=== PATIENT | female | born 1995 | race Caucasian/White ===

== ENCOUNTER 2016-06-04 16:58 | Emergency (ER) | payer BC, MEDICAID, OTHER ==
--- OUTSIDE RECORDS SUMMARY | 2016-06-04 17:26 | XMS REPORT | Continuity of Care Document ---
:1995 Author Organization [facility] ([facility]) Address [place] [address] Phone [phone] Care Team Providers Name Role Phone Provider, No-Primary Care Primary Care Provider Unavailable Source Comments This disclosure is being made pursuant to the Care Everywhere program, applicable federal and state laws, and may not contain all informaitonavailable regarding this patient.[facility] ([facility]) Active Allergies and Adverse Reactions Allergen Noted Date Severity Reactions Comments Metoclopramide Hcl 12/11/2013 Agitation Promethazine 11/21/2013 Hallucinations,Mental status changes Current Medications Prescription Sig. Disp. Refills Start Date End Date Status multivitamin Take 1 Tab by mouth Active with minerals 27-0.8 daily. mg tablet oxyCODONE-acetaminophe Take 1-2 Tabs by 25 Tab 0 12/11/2013 Active n 5-325 mg per tablet mouth every 4 hours as needed. Do Not exceed 4000 mg of acetaminophen per 24 hours. Indications: PAIN metroNIDAZOLE 500 mg Take 1 Tab by mouth 2 14 Tab 0 12/11/2013 Active tablet times daily. Indications: BACTERIAL VAGINOSIS fluconazole 150 mg Take 1 Tab by mouth 3 Tab 0 12/11/2013 Active tablet once. 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 Pain in joint, shoulder region 11/16/2007 Social History Tobacco Use Types Packs/Day Years Used Date Never Smoker Smokeless Tobacco: Never Used Alcohol Use Drinks/Week oz/Week Comments No Last Filed Vital Signs Vital Sign Reading Time Taken Blood Pressure 128/71 12/11/2013 9:30 PM CDT Pulse 79 12/11/2013 6:45 PM CDT Temperature 37.2 C (99 F) 12/11/2013 9:55 PM CDT Respiratory Rate 18 12/11/2013 6:45 PM CDT Height 1.549 m (5' 1") 12/11/2013 6:45 PM CDT Weight 76.204 kg (168 lb) 12/11/2013 6:45 PM CDT Body Mass Index 31.76 12/11/2013 6:45 PM CDT Oxygen Saturation - - Plan of Care Health Maintenance Due Date Last Done Comments Hepatitis B Vaccine (1 of 3 - Primary Series) 1994 HPV Vaccine (1 of 3 - Female/Unknown 3 Dose Series) 2005 Tdap Vaccine 2005 Meningococcal Vaccine (1 of 1) 2010 Cervical Cancer Screening 2012 Lipid Disorder Screening 2012 MMR Vaccine 2012 Td Vaccine 2012 Varicella Vaccine (1 of 2 - Adult - No Evidence of 2012 Immunity) Influenza Vaccine: Seasonal (#1) 09/29/2015 Results from Last 3 Months Not on file
--- OUTSIDE RECORDS SUMMARY | 2016-06-04 17:26 | XMS REPORT | Continuity of Care Document ---
:1995 Author Organization [facility] [place] [address] Care Team Providers Name Role Phone Unavailable Primary Care Provider Unavailable Source Comments This disclosure is being made pursuant to the Aqwise program and maynot contain all information available regarding this patient.[facility] Active Allergies and Adverse Reactions Not on File Current Medications Be aware that medications may not be up to date as of this document. Alwaysverify current medications with the patient. Not on file Active Problems Not on file Social History Tobacco Use Types Packs/Day Years Used Date Never Assessed Plan of Care Health Maintenance Due Date Last Done Comments HPV Vaccine (9-26YO) (1 of 3 - Female/Unknown 3 Dose 2005 Series) Chlamydia Screening 2010 Retired-Tetanus Vaccine Adult 2013 Retired-INFLUENZA VACCINE 10/29/2014 Results from Last 3 Months Not on file
--- NOTE | 2016-06-04 19:09 | ERNOTE ---
Medical Problem HPI - Narrative Date of Service: 06/04/16 - General Chief Complaint: General Assessment Time Seen by Provider: 06/04/16 17:14 Source: patient Exam Limitations: no limitations - Immun/Allergies/Home Medications Immunizations: IMMUNIZATION HX Immunizations Up to Date Yes History of Influenza Vaccine Yes Hx Pneumococcal Vaccination No Allergies/Adverse Reactions: Allergies promethazine HCl [From Phenergan] Adverse Reaction (Intermediate, Verified 06/04 17:06) Other hallucinations Home Medications: HOME MEDICATIONS Vit#96/Ferrous Fum/FA [ S] 1 tab PO DAILY 04/29/13 [Last Taken 12/24/13 08:00] oxyCODONE HCL/ACETAMINOPHEN [Percocet 5 MG/325 MG] 1 tab PO QID PRN #30 tablet 12/26/13 [Last Taken Unknown] - History of Present History Narrative: This 20-year-old female presented to the emergency room for abdominal pain cramping and bleeding. She states that she is at this time. Her last menstrual period she said sometime in March. Patient states that she started spotting 3 days ago this morning she had heavy bleeding with clots. She did not call her PRODUCTION ENGINEER. Date (Duration): 06/04/16 Timing: constant Severity: mild Review of Systems - Review of Systems Constitutional: Present: no symptoms reported EYE: Present: no symptoms reported ENT: Present: no symptoms reported Respiratory: Present: no symptoms reported Cardiology: Present: no symptoms reported Gastrointestinal/Abdominal: Present: abdominal pain - cramping. Absent: nausea , vomiting, diarrhea Genitourinary: Present: See HPI Musculoskeletal: Present: no symptoms reported Skin: Present: no symptoms reported Neurological: Present: no symptoms reported Endocrine: Present: no symptoms reported Hematologic/Lymphatic: Present: no symptoms reported Psych: Present: no symptoms reported - Patient's Past Medical History Patient History - Medical: No pertinent hx, Other Additional info: She has 3 children and has also had 2 miscarriages in the past Patient History - Cardiac/Respiratory: No pertinent hx Patient History - Cancer: No Hx of Cancer Patient History - Surgical Procedures: T & A Patient History - Other: None LMP (females 10-50): - Social History Living Situations: home Abuse History: No History of abuse Psych History: No pertinent hx Smoking Status: Former smoker Have you smoked in the past 12 months: No Do you dip or chew tobacco: No Alcohol Use: none Drug Use: none - Immunizations Immunizations Up to Date: Yes Hx Pneumococcal Vaccination: No History of Influenza Vaccine: Yes Physical Exam - Physical Exam Narrative: Patient's abdomen is soft and nontender. She did state that her cramping has gotten better since this morning. Patient states that she had read bloody discharge with clots this morning that was very heavy but it has gotten better as the day went on. General Appearance: Present: wd/wn, alert, no apparent distress Eye Exam: Normal inspection: bilateral Ears, Nose, Throat: Present: normal ENT inspection Neck: Present: normal inspection Respiratory: Present: no respiratory distress Cardiovascular/Chest: Present: regular rate, rhythm Gastrointestinal/Abdominal: Present: normal bowel sounds Extremity Exam: Present: normal inspection Neurological Exam: Present: alert, oriented, normal mood/affect Skin Exam: Present: normal color Lymphatic Exam: Present: no adenopathy Pelvic Exam: Present: active bleeding - per pt, discharge ED Progress - Results and Orders Patient's Lab Results:: I have reviewed the patient's lab results. Results and Orders: neg - Vital Signs Patient's Vital Signs:: I have reviewed the patient's vital signs. Vital Signs: Vital Signs 06/04/16 17:07 Temperature 36.7 C Pulse Rate 75 Respiratory 14 Rate Blood Pressure 111/81 O2 Sat by Pulse 99 Oximetry - CT/Ultrasound CT/Ultrasound Narrative: The uterus measures approximately 8.8 cm in length by 3.9 cm AP by 5.1 cm transverse. There is a normal uterine contour and echotexture without evidence of mass. There is limited evaluation of the endometrium. The lower uterine segment and cervix are grossly unremarkable, however, are poorly visualized. The right ovary measures approximately 3.0 x 3.9 x 3.2 cm. The left ovary measures approximately 2.7 x 2.8 x 1.2. There is symmetric color flow and pulsatile flow to the ovaries. There is a possible dominant right ovarian follicle measuring approximately 1.9 cm. There is no obvious adnexal mass. Limited evaluation the urinary bladder is unremarkable. Transvaginal pelvic ultrasound: The uterus measures approximately 9.6 cm in length by 3.5 cm AP by 4.3 cm transverse. There is a normal uterine contour and echotexture without evidence of mass. Possible septate or arcuate appearance versus artifact. The endometrium is normal in appearance measuring 0.7 cm in thickness. No evidence of a gestational sac, yolk sac, or pole within the endometrium. The lower uterine segment is unremarkable. The cervix is unremarkable. The right ovary measures approximately 2.5 x 3.5 x 2.9 cm. The left ovary measures approximately 3.4 x 1.8 x 1.3 cm. There is symmetric color flow and pulsatile flow to the ovaries. There is a dominant right ovarian follicle measuring approximately 2 cm. There is no discrete adnexal mass. There is a small amount of pelvic free fluid. Impression: No evidence of a intrauterine . Recommend correlation with serial beta-hCGs. If the patient has a previously documented positive test with a interval downward trend of the beta hCG, failure of first term could be considered. If the patient has a previously documented positive test with upward trend of the beta hCG, a early intrauterine or ectopic could be considered. Possible septate or arcuate uterus versus artifact. Additional findings and comments are as above. Electronically signed by Tim Alexis D.O.. - Progress/Reassessment Chief Complaint: General Assessment Progress:: Improved Plan - Plan Plan: Patient does not want her boyfriend be aware of her reasoning for being at the hospital. This provider asked the patient if she is safe at home and in a safe relationship with her children she shook her head yes. She then began avoiding eye contact with me for the rest of the conversation and interview. She was asked again about the safety of her home environment. She shook her head yes. Patient requested that no one be given information about her condition while she is here. She states that she will tell her boyfriend when she gets home. Departure - Departure Clinical Impression: Menstrual abnormality Disposition: Home Follow Up Needed Condition: Stable Instructions: Abnormal Uterine Bleeding, Dysmenorrhea, [id number], Menorrhagia, [id number] Additional Instructions: Patient is to follow-up with her PRODUCTION ENGINEER on Tuesday relating to this incident. Please return to the emergency room if bleeding is unable to be controlled or you have any new symptoms. you may take any home medications as previously prescribed. Take [id number] pain medication for cramping. Referrals: Cole Jaime DO [Primary Care Provider] -
[2016-06-04 19:52] VITALS: BP 110/71
== END 2016-06-04 19:34 | disposition home or self-care (01) ==
LOC: ER 16:58
DX: N92.6 Irregular menstruation, unspecified (principal); Z87.891 Personal history of nicotine dependence

== ENCOUNTER 2016-12-15 08:53 | Emergency (ER) | payer MEDICAID, OTHER ==
[2016-12-15 09:14] VITALS: BP 119/73
--- NOTE | 2016-12-15 09:36 | ERNOTE ---
Abdominal HPI - Narrative Date of Service: 12/15/16 - General Chief Complaint: Abdominal Pain Time Seen by Provider: 12/15/16 09:21 Source: patient Exam Limitations: no limitations - Immun/Allergies/Home Medications Immunizatons: IMMUNIZATION HX Immunizations Up to Date Yes History of Influenza Vaccine No Hx Pneumococcal Vaccination No Allergies/Adverse Reactions: Allergies metoclopramide [From Reglan] Adverse Reaction (Intermediate, Verified 12/15/16 09:15) Other promethazine HCl [From Phenergan] Adverse Reaction (Intermediate, Verified 12/15 09:15) Other hallucinations Home Medications: HOME MEDICATIONS Vits96/Iron Fum/Folic [ S] 1 tab PO DAILY 04/29/13 [Last Taken 12/24/13 08:00] HYDROcodone/ACETAMINOPHEN [[place] 5-325] 1 - 2 tab PO TID PRN #12 tab 12/15/16 [ Last Taken Unknown] - History of Present Illness Narrative: Patient is 8 weeks and presents to the emergency room for large amount of vaginal bleeding and cramping since this morning since she woke up. She denies any trauma she has not been sexually active in the past 24 hours and she did not lift anything heavy. She was fine last night started having pelvic pain and cramping this morning with a large amount of blood and clots. Denies feeling dizzy or lightheaded. Review of Systems - Review of Systems Constitutional: Present: no symptoms reported, decreased activity level ENT: Present: no symptoms reported Respiratory: Present: no symptoms reported Cardiology: Present: no symptoms reported Gastrointestinal/Abdominal: Present: no symptoms reported Genitourinary: Present: See HPI Musculoskeletal: Present: no symptoms reported Skin: Present: no symptoms reported - Patient's Past Medical History Patient History - Medical: No pertinent hx, Other Patient History - Cardiac/Respiratory: No pertinent hx Patient History - Cancer: No Hx of Cancer Patient History - Surgical Procedures: T & A Patient History - Other: None LMP (females 10-50): 3 months LMP (Calendar): 10/22/16 - Social History Abuse History: No History of abuse Psych History: No pertinent hx Smoking Status: Current every day smoker Have you smoked in the past 12 months: Yes - Immunizations Immunizations Up to Date: Yes Hx Pneumococcal Vaccination: No History of Influenza Vaccine: No Physical Exam - Physical Exam General Appearance: Present: wd/wn, alert, no apparent distress Head Exam: Present: normal inspection Respiratory: Present: no respiratory distress, normal breath sounds, no accessory muscle use, chest nontender, lungs clear Cardiovascular/Chest: Present: regular rate, rhythm, no murmur, normal peripheral pulses Gastrointestinal/Abdominal: Present: normal bowel sounds, nontender, nondistended, soft, no organomegaly Extremity Exam: Present: other - there is blood and clots at the enteritis. I do not see any tissue in the vaginal vault or at the introitus. ED Progress - Results and Orders Patient's Lab Results:: I have reviewed the patient's lab results. - Vital Signs Patient's Vital Signs:: I have reviewed the patient's vital signs. Vital Signs: Vital Signs 12/15/16 09:10 Temperature 36.9 C Pulse Rate 95 Respiratory 16 Rate Blood Pressure 119/73 O2 Sat by Pulse 100 Oximetry - Progress/Reassessment Chief Complaint: Abdominal Pain Plan - Plan Plan: This patient's ultrasound does reveal an gestational sac in the uterus no eye with a pole however no heart tones noted it is somewhat early in the . Patient is hemodynamically stable. This case was discussed with Dr. Talbot at 11:[address] Talbot suggested that the patient follow up with her in 2 weeks. Patient will be given precautions as to when to come back she will be treated for pain. Departure Clinical Impression: Threatened - Departure Disposition: Home self-care Condition: Good Instructions: Vaginal Bleeding During , First Trimester Additional Instructions: Please refrain from intercourse. Please be on bedrest. You may ambulate to the restroom and back. If you are soaking 3 pads in 1 hour please come back to the emergency room please follow-up with Dr. Talbot in 2 weeks. Prescriptions: HYDROcodone/ACETAMINOPHEN [[place] 5-325] 1 - 2 tab PO TID PRN #12 tab PRN Reason: Pain
[2016-12-15 09:45] LABS: Urine Bilirubin Negative (NEGATIVE); Urine Blood 250 /ul (NEGATIVE); Urine Ketone Negative (NEGATIVE); Urine Nitrite Negative (NEGATIVE); Urine Protein 15 mg/dL (NEGATIVE); Urine Urobilinogen Normal (NORMAL)
[2016-12-15 09:47] LABS: Hematocrit 37.9 % (37.0-47.0); Hemoglobin 12.8 gm/dL (12.5-16.0); Mean Corpuscular Hemoglobin 30.4 pg (27-31); Mean Corpuscular Hgb Conc 33.8 g/dl (32-36); Mean Platelet Volume 9.7 fl (6.0-9.5); Neutrophil # 4.6 K/mm3 (1.3-6.0); Neutrophil % 59.5 % (42-75.0); Platelet Count 248 K/mm3 (150-450); Red Blood Count 4.21 M/mm3 (4.2-5.4); Red Cell Distribution Width 11.8 % (11.5-14.0); White Blood Count 7.7 K/mm3 (4.0-10.5)
[2016-12-15 09:55] LABS: Urine Appearance Slightly Cloudy; Urine Bacteria TRACE; Urine WBC 0-5 /hpf (0-5)
== END 2016-12-15 11:50 | disposition home or self-care (01) ==
LOC: ER 08:53
DX: O20.0 Threatened abortion (principal); Z3A.08 8 weeks gestation of pregnancy; F17.200 Nicotine dependence, unspecified, uncomplicated; R10.2 Pelvic and perineal pain

== ENCOUNTER 2017-11-19 17:51 | Inpatient (IN) ==
[2017-11-19] MEDS ORDERED: LIDOCAINE HCL 50 ML VIAL PERI PRN (18:23)
[2017-11-19] MEDS ORDERED: OXYTOCIN/DEXTROSE 5%-WATER 30 UNITS/500 ML BAG IV ONE (18:23)
[2017-11-19] MEDS ORDERED: ONDANSETRON HCL/PF 2 MG/ML VIAL IV PRN (18:23)
[2017-11-19] MEDS ORDERED: NALBUPHINE HCL 10 MG/ML AMPUL IV PRN ×2 (18:23)
[2017-11-19] MEDS ORDERED: PENICILLIN G POTASSIUM 5 MILLIONUNT in DEXTROSE 5 % IN WATER 100 ML IV ONE ×2 (18:23)
[2017-11-19 18:45] LABS: Hematocrit 35.2 % (37.0-47.0); Mean Cell Volume 92.9 fl (78-100); Mean Corpuscular Hemoglobin 31.7 pg (27-31); Mean Corpuscular Hgb Conc 34.1 g/dl (32-36); Mean Platelet Volume 9.9 fl (8-12.5); Neutrophil # 9.2 K/mm3 (1.3-6.0); Neutrophil % 71.1 % (42-75.0); Platelet Count 185 K/mm3 (150-450); Red Blood Count 3.79 M/mm3 (4.2-5.4); Red Cell Distribution Width 12.7 % (11.5-14.0); White Blood Count 12.9 K/mm3 (4.0-10.5)
[2017-11-19 18:58] LABS: Albumin * 2.6 gm/dl (3.4-5.0); Anion Gap 17.1 mmol/L (6.8-13.8); Bilirubin, Total 0.3 mg/dL (0.0-1.1); Ca. Corrected For Albumin 9.2 mg/dL (8.4-10.2); Calcium * 8.4 mg/dL (7.9-10.9); Carbon Dioxide 20.2 mmol/L (24-32.6); Potassium 3.3 mmol/L (3.4-4.6); Total Protein 6.3 gm/dL (6.2-8.2)
[2017-11-19] MEDS: RINGER'S SOLUTION,LACTATED 1,000 ML IV PRN (19:10)
[2017-11-19] MEDS: MISOPROSTOL 100 MCG TABLET VG SCH ×2 (19:15→23:19)
[2017-11-19 21:39] LABS: Cocaine Ur Negative (NEGATIVE); Urine Barbiturate Negative (NEGATIVE); Urine Benzodiazepines Negative (NEGATIVE); Urine Opiates Negative (NEGATIVE); Urine PCP Negative (NEGATIVE); Urine THC Negative (NEGATIVE)
[2017-11-19 23:32] LABS: Random Urine Total Protein 10.9 mg/dL (0-12)
[2017-11-19] MEDS: PENICILLIN G POTASSIUM 2.5 MILLIONUNT in DEXTROSE 5 % IN WATER 100 ML IV SCH ×2 (23:50)
[2017-11-20] MEDS: RINGER'S SOLUTION,LACTATED 1,000 ML IV PRN ×2 (02:19→09:23)
[2017-11-20] MEDS: PENICILLIN G POTASSIUM 2.5 MILLIONUNT in DEXTROSE 5 % IN WATER 100 ML IV SCH ×10 (03:31→18:44)
[2017-11-20] MEDS ORDERED: MISOPROSTOL 100 MCG TABLET VG ONE (08:58)
--- NOTE | 2017-11-20 09:03 | HP ---
Chief Complaint - Chief Complaint Date of Service: 11/20/17 Time of Service: 09:00 Chief Complaint: Pt presents for induction of labor History of Present Illness: The patient presents for an induction of labor due to polyhydramnios. She denies any painful ctx. She denies lof or vb. Fetus is active. Denies PAK, visual changes or abdominal pain. Medical History (Last Updated 08/30/17 @ 14:16 by Jodi Ruiz) Currently Onset Date: 04/20/17 Nausea and vomiting Onset Date: 05/01/13 Marisa-Danlos syndrome Onset Date: Unknown Tobacco abuse Onset Date: 04/20/17 Constipation Onset Date: 04/20/17 First trimester bleeding Onset Date: 05/01/13 labor Onset Date: Unknown Vaginal discharge Onset Date: 09/21/13 Vulvovaginal candidiasis Onset Date: 09/21/13 Surgical History: Surgical History (Last Updated 08/30/17 @ 14:18 by Jodi Ruiz) H/O adenoidectomy Onset Date: ~2000 History of tonsillectomy Onset Date: ~2000 Family History: Family History (Last Updated 08/30/17 @ 14:25 by Jodi Ruiz) Father Hypertension Depression Anxiety Bipolar 1 disorder Grandmother Brain aneurysm Grandmother Kidney disease Mother Anxiety Depression Bipolar disorder Sister Bipolar 1 disorder Depression Mental retardation Uncle Diabetes Seizure disorder Aneurysm Social History: Preferred Language Syriac Abuse History No History of abuse Psych History No pertinent hx Review Of Systems (GEN) - Review of Systems Misc: All systems neg except as marked Immunizations: IMMUNIZATION HX Immunizations Up to Date No History of Influenza Vaccine No Hx Pneumococcal Vaccination No Allergies/Adverse Reactions: Allergies Allergy/AdvReac Type Severity Reaction Status Date / Time metoclopramide [From Reglan] AdvReac Intermediate Other Verified 11/19/17 18:25 ondansetron [From Zofran] AdvReac Intermediate Verified 11/19/17 18:25 promethazine HCl AdvReac Intermediate Other Verified 11/19/17 18:25 [From Phenergan] Home Medications: HOME MEDICATIONS Vits96/Iron Fum/Folic [ S] 1 tab PO DAILY 04/29/13 [Last Taken 11/18/17] Acetaminophen [Tylenol] 500 mg PO PRN PRN 05/17/17 [Last Taken Unknown] Famotidine 10 mg PO BID 11/19/17 [Last Taken Unknown] Exam - Exam Vital Signs: Vital Signs - Last Taken Temp 37.1 C 11/19/17 19:28 Pulse 84 11/19/17 19:28 Resp 18 11/19/17 19:28 BP 111/65 11/19/17 19:28 Pulse Ox 97 11/19/17 19:28 Constitutional: Present: Alert, Oriented x3, Cooperative, No distress Respiratory: Present: chest non-tender, lungs clear, normal breath sounds Cardiovascular/Chest: Present: normal peripheral pulses, regular rate, rhythm, no gallop, no murmur Abdomen: Present: soft, nontender, nondistended /Rectal: Present: Exam deferred Extremity: Present: normal range of motion, non-tender, no calf tenderness Skin Exam: Present: normal color, warm/dry, no cyanosis Appearance: Present: appropriate appearance Eye contact: Present: cooperative Thoughts: Present: normal thought pattern Diagnostic Studies: Abnormal Lab Results 11/19/17 11/19/17 Range/Units 18:35 18:35 WBC 12.9 H (4.0-10.5) K/mm3 RBC 3.79 L (4.2-5.4) M/mm3 Hgb 12.0 L (12.5-16.0) gm/dL Hct 35.2 L (37.0-47.0) % MCH 31.7 H (27-31) pg Immature Gran % (Auto) 2.20 H (0.001-0.429) % Immature Gran # (Auto) 0.28 H (0.000-0.0310) K/mm3 Lymphocytes % 18.0 L (20-51) % Neutrophils # 9.2 H (1.3-6.0) K/mm3 Potassium 3.3 L (3.4-4.6) mmol/L Carbon Dioxide 20.2 L (24-32.6) mmol/L Anion Gap 17.1 H (6.8-13.8) mmol/L Random Glucose 125 H (70-110) mg/dL Albumin 2.6 L (3.4-5.0) gm/dl Laboratory Results WBC 12.9 K/mm3 (4.0-10.5) H 11/19/17 18:35 RBC 3.79 M/mm3 (4.2-5.4) L 11/19/17 18:35 Hgb 12.0 gm/dL (12.5-16.0) L 11/19/17 18:35 Hct 35.2 % (37.0-47.0) L 11/19/17 18:35 MCV 92.9 fl (78-100) 11/19/17 18:35 MCH 31.7 pg (27-31) H 11/19/17 18:35 MCHC 34.1 g/dl (32-36) 11/19/17 18:35 RDW 12.7 % (11.5-14.0) 11/19/17 18:35 Plt Count 185 K/mm3 (150-450) 11/19/17 18:35 MPV 9.9 fl (8-12.5) 11/19/17 18:35 Immature Gran % (Auto) 2.20 % (0.001-0.429) H 11/19/17 18:35 Immature Gran # (Auto) 0.28 K/mm3 (0.000-0.0310) H 11/19/17 18:35 Neutrophils % 71.1 % (42-75.0) 11/19/17 18:35 Lymphocytes % 18.0 % (20-51) L 11/19/17 18:35 Monocytes % 6.9 % (0.0-9) 11/19/17 18:35 Eosinophils % 1.3 % (0.0-3.0) 11/19/17 18:35 Basophils % 0.5 % (0.0-1.0) 11/19/17 18:35 Nucleated RBC % 0.0 k/mm3 (0-1) 11/19/17 18:35 Neutrophils # 9.2 K/mm3 (1.3-6.0) H 11/19/17 18:35 Lymphocytes # 2.33 k/mm3 (1.5-3.5) 11/19/17 18:35 Monocytes # 0.9 k/mm3 (0.0-1.0) 11/19/17 18:35 Eosinophils # 0.2 k/mm3 (0.0-0.7) 11/19/17 18:35 Absolute Basophils 0.1 k/mm3 (0.0-0.1) 11/19/17 18:35 Sodium 138 mmol/L (132-142) 11/19/17 18:35 Plasma Sodium 138 mmol/L (130-142) 11/19/17 18:35 Potassium 3.3 mmol/L (3.4-4.6) L 11/19/17 18:35 Chloride 104 mmol/L (97-106) 11/19/17 18:35 Carbon Dioxide 20.2 mmol/L (24-32.6) L 11/19/17 18:35 Anion Gap 17.1 mmol/L (6.8-13.8) H 11/19/17 18:35 BUN 10 mg/dL (3-23) 11/19/17 18:35 Creatinine 0.77 mg/dL (0.4-1.4) 11/19/17 18:35 Est GFR (Non-Af Amer) 99 mL/min (60-130) D 11/19/17 18:35 BUN/Creatinine Ratio 13.0 (9.0-21.6) 11/19/17 18:35 Random Glucose 125 mg/dL (70-110) H 11/19/17 18:35 Calcium 8.4 mg/dL (7.9-10.9) 11/19/17 18:35 Calcium Adj for Albumin 9.2 mg/dL (8.4-10.2) 11/19/17 18:35 Total Bilirubin 0.3 mg/dL (0.0-1.1) 11/19/17 18:35 AST 13 U/L (0-48) 11/19/17 18:35 ALT 19 U/L (19-67) 11/19/17 18:35 Alkaline Phosphatase 143 U/L (50-170) 11/19/17 18:35 Total Protein 6.3 gm/dL (6.2-8.2) 11/19/17 18:35 Albumin 2.6 gm/dl (3.4-5.0) L 11/19/17 18:35 Ur Random Creatinine 110.6 mg/dL (60-200) 11/19/17 21:15 U Random Total Protein 10.9 mg/dL (0-12) 11/19/17 21:15 U [place] Prot/Creat Ratio 99 mg/gm (0-199) 11/19/17 21:15 Urine Opiates Screen Negative (NEGATIVE) 11/19/17 21:02 Barbiturate Screen Negative (NEGATIVE) 11/19/17 21:02 Ur Phencyclidine Scrn Negative (NEGATIVE) 11/19/17 21:02 Urine Amphetamine Negative (NEGATIVE) 11/19/17 21:02 U Benzodiazepines Scrn Negative (NEGATIVE) 11/19/17 21:02 Urine Cocaine Screen Negative (NEGATIVE) 11/19/17 21:02 Urine Marijuana (THC) Negative (NEGATIVE) 11/19/17 21:02 Blood Type A Positive 11/19/17 18:35 Antibody Screen Negative 11/19/17 18:35 Assessment/Plan - Narrative Narrative: IOL for polyhydramnios GBS positive: GBS prophylaxis Continue IOL
[2017-11-20] MEDS: MISOPROSTOL 100 MCG TABLET VG SCH (09:11)
--- NOTE | 2017-11-20 13:45 | PN ---
Progess Note - Interim Date: 11/20/17 Time: 13:43 Narrative: 11/20/17 13:43 Pt comfortable s/p 3 doses of cytotec cvx is now 1.5/50/-2 AROM for clear fluid Fetus is cat 1 Pt has 2VC Start pitocin Anticipate
[2017-11-20] MEDS ORDERED: BUPIVACAINE HCL/0.9 % NACL/PF 250 ML EP PRN (15:37)
[2017-11-20] MEDS ORDERED: NALOXONE HCL 1 MG/1 ML SYRG IV PRN (15:37)
[2017-11-20] MEDS ORDERED: RINGER'S SOLUTION,LACTATED 1,000 ML IV ONE (15:40)
[2017-11-20] MEDS ORDERED: fentaNYL CITRATE/PF 50 MCG/ML AMPUL IT SCH (16:00)
--- NOTE | 2017-11-20 16:07 | ANES ---
Anesthesia Pre Procedure Eval Vitals/Labs: Last Vital Signs Temp 36.7 C 11/20/17 15:48 Pulse 63 11/20/17 15:48 Resp 18 11/20/17 15:48 BP 118/74 11/20/17 15:48 Pulse Ox 100 11/20/17 15:48 HOME MEDICATIONS Vits96/Iron Fum/Folic [ S] 1 tab PO DAILY 04/29/13 [Last Taken 11/18/17] Acetaminophen [Tylenol] 500 mg PO PRN PRN 05/17/17 [Last Taken Unknown] Famotidine 10 mg PO BID 11/19/17 [Last Taken Unknown] Allergies/Adverse Reactions: Allergies Allergy/AdvReac Type Severity Reaction Status Date / Time metoclopramide [From Reglan] AdvReac Intermediate Other Verified 11/19/17 18:25 ondansetron [From Zofran] AdvReac Intermediate Verified 11/19/17 18:25 promethazine HCl AdvReac Intermediate Other Verified 11/19/17 18:25 [From Phenergan] - Planned Procedure Planned Procedure: INDUCTION Medication List Reviewed:: Yes Allergies Verified: Yes Medical History (Last Reviewed 11/20/17 @ 16:06 by Romario Funes CRNA) Currently Onset Date: 04/20/17 Nausea and vomiting Onset Date: 05/01/13 Marisa-Danlos syndrome Onset Date: Unknown Tobacco abuse Onset Date: 04/20/17 Constipation Onset Date: 04/20/17 First trimester bleeding Onset Date: 05/01/13 labor Onset Date: Unknown Vaginal discharge Onset Date: 09/21/13 Vulvovaginal candidiasis Onset Date: 09/21/13 Surgical History (Last Reviewed 11/20/17 @ 16:06 by Romario Funes CRNA) H/O adenoidectomy Onset Date: ~2000 History of tonsillectomy Onset Date: ~2000 Family History (Last Reviewed 11/20/17 @ 16:06 by Romario Funes CRNA) Father Hypertension Depression Anxiety Bipolar 1 disorder Grandmother Brain aneurysm Grandmother Kidney disease Mother Anxiety Depression Bipolar disorder Sister Bipolar 1 disorder Depression Mental retardation Uncle Diabetes Seizure disorder Aneurysm - Family Anesthesia History Family History:: no untoward family reactions to anesthesia - Airway/Neck/Teeth Within Normal Limits:: Yes Teeth Condition: Intact Denture Type: None Neck Exam: full range of motion, normal inspection Mallampatti Score: 2 Thyromental (T-M) distance: > 6 cm Mandibulo Hyoid distance: > 3 cm - Respiratory Respiratory: lungs clear Smoking Status: Current every day smoker Discussed smoking cessation including day of surgery: Yes Sleep Apnea currently treated: No Sleep Apnea by current assessment: No - Cardiovascular Patient History - Cardiac/Respiratory: No pertinent hx Tolerates Activity: Good Heart Sounds: S1 & S2, Regular - Anesthesia Assessment and Plan ASA Class: PS, II, E Anesthesia Type Plan: Epidural
--- NOTE | 2017-11-20 16:37 | ANES ---
Post Anesthesia Discharge - Transfer of Care Transfer of Care handoff given to nurse: Yes - Anesthesia Post Op Note Anesthesia Post Op Note: Care transferred to OB RN
--- NOTE | 2017-11-20 16:37 | ANES ---
Post Anesthesia Assessment - Vital Signs Vitals: Last Vital Signs Temp 36.7 C 11/20/17 15:48 Pulse 63 11/20/17 15:48 Resp 18 11/20/17 15:48 BP 118/74 11/20/17 15:48 Pulse Ox 100 11/20/17 15:48 Airway Patency: Normal - Mental Status Level Of Consciousness: Awake - Pain Level Pain Score: 2 - N/V Assessment Nausea/Vomiting Presence: None Dehydration:: No
--- NOTE | 2017-11-20 16:39 | ANES ---
Anesthesia Procedure Note Procedure Note: ANESTHESIA PROCEDURE NOTE Date of Procedure: 11/20/2017 Time of procedure:[]. 1620 Performed by: Esteban Funes CRNA Preschool Teacher'S Assistant: None. Preprocedure diagnosis: Active labor. Post procedure diagnosis: Same. Procedure: Insertion of labor epidural. Indications: The patient is a [32] -year-old [multigravida] female in active labor requesting labor epidural for pain management. Findings: See below. Details of the procedure: The patient was placed in a sitting position. Back was prepped with DuraPrep. Patient was then draped in a sterile fashion. Lidocaine 1% was infiltrated to the skin and subcutaneous tissues at the level of the L3 4 interspace. The epidural space was identified using a 18-gauge Tuohy needle with [id number] technique. 20 mcg fentanyl was given intrathecally using a 27 ga. spinal needle. Epidural catheter was inserted without difficulty. Negative test dose was elicited using 5 mL of 1.5% preservative-free lidocaine plus epinephrine 1 200,000. The epidural catheter was then taped and secured in place. EBL: Minimal. Fluids: N/A. Specimen: N/A. Post procedure condition: The patient tolerated the procedure well. No complications were noted. Thank you for this consultation. Ramos CRNA
[2017-11-20] MEDS ORDERED: TERBUTALINE SULFATE 1 MG/ML VIAL ONE (20:09)
[2017-11-20] MEDS ORDERED: TERBUTALINE SULFATE 1 MG/ML VIAL SC STA (20:11)
--- NOTE | 2017-11-20 20:22 | PN ---
Progess Note - Interim Date: 11/20/17 Time: 20:19 Narrative: 11/20/17 20:19 Called by RN due to recurrent late decelerations. Cervix examined and the patient is 8/60/-2, head not well applied to the cervix , molding noted Fluid bolus given, patient repositioned, a dose of terbutaline was given The FHT has now recovered Restart pitocin when able Discussed delivery with patient if the FHR abnormalities persist
[2017-11-20] MEDS ORDERED: BISACODYL 10 MG SUPP.RECT RC PRN (22:21)
[2017-11-20] MEDS ORDERED: HYDROcodone/ACETAMINOPHEN 1 EACH TABLET PO PRN (22:21)
[2017-11-20] MEDS ORDERED: GLYCERIN/WITCH HAZEL LEAF 40 APPL BOX TP PRN (22:21)
[2017-11-20] MEDS ORDERED: ACETAMINOPHEN 325 MG TABLET PO PRN (22:21)
[2017-11-20] MEDS ORDERED: BENZOCAINE/MENTHOL 81 SPRAY CAN TP PRN (22:21)
[2017-11-20] MEDS ORDERED: diphenhydrAMINE HCL 25 MG CAPSULE PO PRN (22:21)
[2017-11-20] MEDS ORDERED: OXYTOCIN/DEXTROSE 5%-WATER 30 UNITS/500 ML BAG IV ONE (22:21)
[2017-11-20] MEDS ORDERED: SENNOSIDES 8.6 MG TABLET PO PRN (22:21)
[2017-11-20] MEDS ORDERED: HYDROCORTISONE 30 APPL TUBE TP PRN (22:21)
--- NOTE | 2017-11-20 22:37 | OR ---
Operative Report - Dictated Report Narrative: Date of delivery: 11/20/2017 Time of delivery: 2213 Gender: female weight: 3300 g APGARS: 8/9 The patient progressed to complete dilation. The baby delivered in the LOAN position. There was a tight nuchal cord which was clamped and cut. The rest of the infant was delivered atraumatically. The placenta was delivered by expression. EBL: 50 mL Lacerations: none Complications: none Definition: * The number of deliveries resulting in a live the patient experienced prior to current hospitalization * The previous delivery of live twins or any live multiple gestation is considered one live event. *If primagravida or nulliparous is documented select zero for the number of previous live births. Live Births: 3
[2017-11-20] MEDS: IBUPROFEN 800 MG TABLET PO PRN (23:57)
[2017-11-20] MEDS: HYDROcodone/ACETAMINOPHEN 1 EACH TABLET PO PRN (23:57)
[2017-11-21] MEDS: PENICILLIN G POTASSIUM 2.5 MILLIONUNT in DEXTROSE 5 % IN WATER 100 ML IV SCH ×4 (01:23→03:39)
[2017-11-21] MEDS: HYDROcodone/ACETAMINOPHEN 1 EACH TABLET PO PRN ×3 (05:04→17:13)
[2017-11-21] MEDS: DOCUSATE SODIUM 100 MG CAPSULE PO SCH ×2 (08:51→21:13)
[2017-11-21] MEDS: IBUPROFEN 800 MG TABLET PO PRN ×2 (08:51→17:12)
--- NOTE | 2017-11-21 13:19 | PN ---
Subjective - Date and Time Seen Date: 11/21/17 Time: 13:16 Subjective Narrative: Pt had a episode of lightheadedness and pelvic pain that has now resolved Objective Objective Narrative: See vital signs - Review of Systems Generalized/Overall Review: Reports: No Symptoms Reported EENTM: Reports: No Symptoms Reported Respiratory: Reports: No Symptoms Reported Cardiac: Reports: No Symptoms Reported Abdominal: Reports: No Symptoms Reported Genitourinary Symptoms: Reports: Other - Pelvic pain Musculoskeletal Complaints: Reports: No Symptoms Reported Neurological: Reports: Anxiety, Depressed Skin: Reports: No Symptoms Reported Endocrine: Reports: No Symptoms Reported - Vitals Vitals: Last Vital Signs Temp 36.1 C 11/21/17 08:00 Pulse 65 11/21/17 08:00 Resp 16 11/21/17 08:00 BP 117/73 11/21/17 08:00 Pulse Ox 98 11/21/17 08:00 - Exam Constitutional: Present: Alert, Oriented x3, Cooperative, No distress Abdomen: Present: soft, nontender - fundus is firm Extremity: Present: non-tender, no calf tenderness Skin Exam: Present: normal color, warm/dry, no cyanosis Appearance: Present: appropriate appearance Eye contact: Present: cooperative Thoughts: Present: normal thought pattern Cauti Physician Documentation - Urinary Catheter Management Urethral (Wolfe) Urethral Indwelling: No Date of Insertion: 11/20/17 Time of Insertion: 16:40 Date of Removal: 11/20/17 Time of Removal: 21:43 Assessment/Plan Plan Narrative: PPD 1 s/p Doing well Pt has strong history of depression and PPD. Start sertraline 50mg for one week followed by 100mg thereafter Pt desires Depo Provera Discharge tomorrow
[2017-11-21] MEDS ORDERED: MEDROXYPROGESTERONE ACET 150 MG/ML SYRG IM ONE (13:20)
[2017-11-21] MEDS: SERTRALINE HCL 50 MG TABLET PO SCH (14:21)
[2017-11-22] MEDS: IBUPROFEN 800 MG TABLET PO PRN (07:25)
--- NOTE | 2017-11-22 08:26 | PN ---
Subjective - Date and Time Seen Date: 11/22/17 Time: 08:25 Subjective Narrative: Patient's bleeding has decreased. No other concerns Objective Objective Narrative: See vital signs - Review of Systems Generalized/Overall Review: Reports: No Symptoms Reported Misc: All systems neg except as marked - Vitals Vitals: Last Vital Signs Temp 37.1 C 11/21/17 14:43 Pulse 70 11/21/17 18:45 Resp 18 11/21/17 18:45 BP 111/72 11/21/17 18:45 Pulse Ox 96 11/21/17 18:45 - Exam Constitutional: Present: Alert, Oriented x3, Cooperative, No distress Abdomen: Present: soft, nontender - fundus is firm Extremity: Present: non-tender, no calf tenderness, pedal edema Skin Exam: Present: normal color, warm/dry, no cyanosis Appearance: Present: appropriate appearance Eye contact: Present: cooperative Thoughts: Present: normal thought pattern Cauti Physician Documentation - Urinary Catheter Management Urethral (Wolfe) Urethral Indwelling: No Date of Insertion: 11/20/17 Time of Insertion: 16:40 Date of Removal: 11/20/17 Time of Removal: 21:43 Assessment/Plan Plan Narrative: PPD 2 s/p Doing well Discharge today
[2017-11-22 08:50] VITALS: BP 123/77
[2017-11-22] MEDS: DOCUSATE SODIUM 100 MG CAPSULE PO SCH (08:53)
[2017-11-22] MEDS: SERTRALINE HCL 50 MG TABLET PO SCH (08:55)
== END 2017-11-22 12:00 | disposition home or self-care (01) | DRG 774 ==
LOC: OB 17:51
PROVIDERS: ADMIT Obstetrics & Gynecology; ATTEND Obstetrics & Gynecology
CPT/HCPCS: 36415; 59025; 80053; 80307; 82570; 84155; 84156; 85025; 86850; 86900; G0479

== ENCOUNTER 2018-10-10 17:19 | Observation (INO) ==
[2018-10-10] MEDS ORDERED: LORazepam 2 MG/ML DISP.SYRIN IV ONE (18:05)
[2018-10-10] MEDS ORDERED: NORMAL SALINE 1,000 ML IV ONE (18:05)
[2018-10-10 18:22] LABS: Hematocrit 37.3 % (37.0-47.0); Hemoglobin 12.9 gm/dL (12.5-16.0); Mean Cell Volume 91.6 fl (78-100); Mean Corpuscular Hemoglobin 31.7 pg (27-31); Mean Corpuscular Hgb Conc 34.6 g/dl (32-36); Mean Platelet Volume 9.4 fl (8-12.5); Neutrophil # 3.3 K/mm3 (1.3-6.0); Neutrophil % 51.1 % (42-75.0); Platelet Count 236 K/mm3 (150-450); Red Blood Count 4.07 M/mm3 (4.2-5.4); Red Cell Distribution Width 11.9 % (11.5-14.0); White Blood Count 6.4 K/mm3 (4.0-10.5)
[2018-10-10 18:37] LABS: Urine Bilirubin Negative (NEGATIVE); Urine Blood Negative /ul (NEGATIVE); Urine Ketone Negative (NEGATIVE); Urine Nitrite Negative (NEGATIVE); Urine Protein Negative (NEGATIVE); Urine Urobilinogen Normal (NORMAL); Urine pH 7.5 pH (5.0-7.0)
[2018-10-10 18:45] LABS: Urine Appearance Clear (CLEAR); Urine Bacteria None Seen; Urine Color Pale Yellow; Urine RBC None Seen /hpf (0-5); Urine WBC None Seen /hpf (0-5)
[2018-10-10 18:45] LABS: Albumin * 3.5 gm/dl (3.4-5.0); BUN/Creatinine Ratio 10.5 (9.0-21.6); Bilirubin, Total 0.2 mg/dL (0.0-1.1); Ca. Corrected For Albumin 9.1 mg/dL (8.4-10.2); Carbon Dioxide 25.9 mmol/L (24-32.6); Potassium 3.9 mmol/L (3.4-4.6); T4 Free * 0.53 ng/dL (0.76-1.46); TSH * 1.807 uIU/mL (0.358-3.74); Total Protein 6.9 gm/dL (6.2-8.2)
[2018-10-10 19:37] LABS: Cocaine Ur Negative (NEGATIVE); Urine Barbiturate Negative (NEGATIVE); Urine Benzodiazepines Positive (NEGATIVE); Urine Opiates Positive (NEGATIVE); Urine PCP Negative (NEGATIVE); Urine THC Negative (NEGATIVE)
--- NOTE | 2018-10-10 20:41 | ERNOTE ---
Dizziness ER Record Date of Service: 10/10/18 Presenting Symptoms: dizziness Time Seen by Provider: 10/10/18 17:49 Source: patient, family, RN notes reviewed Exam Limitations: clinical condition Immunizations: IMMUNIZATION HX Immunizations Up to Date Yes History of Influenza Vaccine Yes Hx Pneumococcal Vaccination No Allergies/Adverse Reactions: Allergies Allergy/AdvReac Type Severity Reaction Status Date / Time metoclopramide [From Reglan] AdvReac Intermediate Other Verified 10/10/18 17:40 ondansetron [From Zofran] AdvReac Intermediate Other Verified 10/10/18 17:40 promethazine HCl AdvReac Intermediate Other Verified 10/10/18 17:40 [From Phenergan] Home Medications: HOME MEDICATIONS hydrocodone 5 mg-acetaminophen 325 mg tablet 1 tab PO BID PRN 03/31/18 [Last Taken Unknown] Diazepam [Valium] 10 mg PO BID PRN 10/10/18 [Last Taken Unknown] Escitalopram Oxalate [Lexapro] 20 mg PO DAILY 10/10/18 [Last Taken Unknown] Hyoscyamine Sulfate 0.125 mg PO Q4H PRN 10/10/18 [Last Taken Unknown] LORazepam [Ativan] 1 mg PO TID 10/10/18 [Last Taken Unknown] - History of Present Illness Narrative: Gale is a 23 year old female brought to the ED by her for dizziness and possible dehydration. She was just seen by her PCP at the [facility] clinic in [place]. She was found to be orthostatic. Her blood pressure dropped with standing and her heart rate was documented as being 200. She was in her usual state of health until the evening of 10/07 when she began having vomiting and diarrhea. This continued on into the following day. Her attributed her symptoms to things they had eaten at a ballgame on 10/07. She slept unusually late yesterday. Her noted that she was not acting right and was running into things. She has not had any further vomiting but has continued to have diarrhea. She also reports having edema in her extremities that is unusual for her. Her reports that she has gained 17 pounds in the past 2 weeks. She had been on Phentermine until 10/06. She also stopped taking her Seroquel that day without tapering the dose. The patient is very anxious and states over and over that something is just wrong. 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 no family history Tobacco abuse Onset Date: 04/20/17 Constipation Onset Date: 04/20/17 First trimester bleeding Onset Date: 05/01/13 labor Onset Date: Unknown 3rd @ 26 weeks, sent to [facility] - delivered at 38 weeks Vaginal discharge Onset Date: 09/21/13 Vulvovaginal candidiasis Onset Date: 09/21/13 Surgical History: Surgical History (Updated 03/27/18 @ 20:19 by Cole Jaime DO) H/O bilateral salpingectomy Onset Date: ~01/06/18 History of endometrial ablation Onset Date: ~01/06/18 History of hysteroscopy Onset Date: ~01/06/18 H/O adenoidectomy Onset Date: ~2000 History of cystoscopy Onset Date: ~02/22/18 History of tonsillectomy Onset Date: ~2000 Hx of hysterectomy Onset Date: ~02/22/18 total laparoscopic hysterectomy Family History: Family History (Last Reviewed 10/10/18 @ 20:35 by Ju Li NP) Father Diabetes Anxiety Depression Bipolar 1 disorder Hypertension Grandmother , maternal Brain aneurysm Grandmother Kidney disease paternal - dialysis Mother Diabetes Anxiety Depression Sister Depression 2 sisters Bipolar 1 disorder 2 sisters Mental retardation 2 sisters Uncle Diabetes maternal Aneurysm maternal Seizure disorder Social History: (Last Reviewed 10/10/18 @ 20:35 by Ju Li NP) Social History: Marital status: Single number of children: 2 current occupational status: employed 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 Highest education level completed: high school graduate Service: No Tobacco: Smoking Status: Current every day smoker tobacco type: cigarettes Smoking cigarettes per day: 1 Alcohol: alcohol intake: former Substance Use: substance use type: does not use Dietary Habits: caffeine: Yes caffeine comment: daily Type: carbonated beverages, coffee Physical Exam - Physical Exam General Appearance: Present: alert, moderate distress, anxious, obese, other - answers questions appropriately at times, seems unable to hold her legs still Head Exam: Present: normal inspection, no evidence of injury Eye Exam: Normal inspection: bilateral Ears, Nose, Throat: Present: normal ENT inspection, normal pharynx Neck: Present: normal inspection, nontender, supple, full range of motion Respiratory: Present: no respiratory distress, normal breath sounds, no accessory muscle use, lungs clear Cardiovascular/Chest: Present: regular rate, rhythm, no murmur, normal peripheral pulses Extremity Exam: Present: normal range of motion, extremity edema - generalized, upper and lower extremities, nonpitting Neurological Exam: Present: alert, oriented, no motor/sensory deficits, other - gait very unsteady when up, frequently slumps over on cart and will not respond but then awakens abruptly . Absent: normal mood/affect Skin Exam: Present: normal color, warm/dry Progress - Results and Orders Patient's Lab Results:: I have reviewed the patient's lab results. - Vital Signs Patient's Vital Signs:: I have reviewed the patient's vital signs. Vital Signs: Vital Signs 10/10/18 17:37 10/10/18 18:10 10/10/18 18:40 Temperature 36.7 C Pulse Rate 89 78 69 Respiratory Rate 16 18 16 Blood Pressure 133/72 97/50 97/50 O2 Sat by Pulse Oximetry 99 97 98 10/10/18 18:45 10/10/18 19:10 10/10/18 19:31 Temperature Pulse Rate 72 71 78 Respiratory Rate 16 16 Blood Pressure 99/65 99/65 O2 Sat by Pulse Oximetry 98 98 10/10/18 20:00 Temperature Pulse Rate 70 Respiratory Rate 18 Blood Pressure 116/82 O2 Sat by Pulse Oximetry 98 - EKG EKG #1 EKG: NSR EKG read: Reviewed by me - X-Ray X-Ray #1 X-Ray: chest Interpretation: Interp. by me X-ray Comments: No acute cardiopulmonary findings - CT/Ultrasound CT/Ultrasound Narrative: Head CT shows no acute intracranial pathology - Progress/Reassessment Chief Complaint: Dizziness Progress:: Unchanged Plan - Plan Plan: The patient's vital signs have been stable while in the ED without any episodes of the 200 bpm tachycardia documented earlier in her PCP's office. She has had a liter of IV NS and Ativan 1 mg IVP. She continues to have episodes of unresponsiveness alternating with extreme anxiety. Her gait is extremely unsteady. Her work-up was unremarkable aside from the mildly elevated BNP and low free T4 (TSH was normal). Her symptoms seem at least partly consistent with those of withdrawal from Seroquel. I contacted Dr. Small. The patient will be admitted to observation status. Departure Clinical Impression: Altered mental status Qualifiers: Altered mental status type: unspecified Qualified Code(s): R41.82 - Altered mental status, unspecified Drug withdrawal Qualifiers: Substance type: other psychoactive substance Qualified Code(s): F19.939 - Other psychoactive substance use, unspecified with withdrawal, unspecified - Departure Disposition: Still a patient Condition: Stable Referrals: Saran Noble MD [Primary Care Provider] -
[2018-10-10] MEDS ORDERED: Hyoscyamine Sulfate 0.125 MG PO PRN (21:57)
[2018-10-10] MEDS: NORMAL SALINE 1,000 ML IV PRN (23:14)
[2018-10-10] MEDS ORDERED: ESCITALOPRAM OXALATE 10 MG TAB PO SCH (23:30)
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
[2018-10-11] MEDS ORDERED: DIAZEPAM 5 MG TABLET PO ONE ×2 (09:07→10:30)
[2018-10-11] MEDS: NORMAL SALINE 1,000 ML IV PRN (10:35)
[2018-10-11] MEDS ORDERED: ACETAMINOPHEN 500 MG TABLET PO PRN (13:12)
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
[2018-10-11] MEDS ORDERED: hydrOXYzine HCL 25 MG TABLET PO PRN (15:37)
--- NOTE | 2018-10-11 16:19 | DS ---
(1) Numbness Problem: Acute (2) Weakness Problem: Acute (3) Marisa-Danlos disease Problem: Chronic (4) Anxiety and depression Problem: Chronic (5) Shoulder pain Problem: Chronic Qualifiers: Chronicity: chronic Description of Stay: Patient with PMHx of Ehler's Danlos syndrome, depression and anxiety, managed by Dr. Iván Noble. On my admission exam, she stated her only other hospitalizations were for childbirth, but admits to psych admissions with our psych provider. She had a hysterectomy earlier this year for menorrhagia. She developed complications, with an abscess and a blood clot. Hasn't needed treatment for that since May. She presented to the ED with a several day history of memory loss and weakness. Reports only remembering bits and pieces of the events since Tuesday. Went to a baseball game Tuesday, and started feeling tired or drowsy. She drank only one beer, and her said she looked flushed. Overnight, she started vomiting and having diarrhea for several hours. She was stumbling around on Tuesday. She slept 12-14 hours Tuesday. Her weakness worsened Tuesday, and started having slurred speech. Needed to lean on things to keep from falling over. She didn't want to sit, saying she "needed to do something." Couldn't get out of bed the day prior to admission. Her symptoms seem to get worse around 1-2 in the afternoon. She had stopped her seroquel 4 days prior to admission because she gained 17 pounds in 2 weeks. Only travel was to [place], [place] in July. She had some similar symptoms when put on Effexor, with dizziness, slurred speech, and balance problems. She developed some foot numbness after admission. Her reports foot swelling for the last few da ys. She felt like her weakness worsened overnight. For her ROS, she denied fevers, current vomiting, dysuria, rash. Positive for nasal congestion 2 days ago, she is having blurry vision, her head is pounding, has chest pressure, has SOB with panic attacks 4-5 times a day, leg pain, nausea. Her case was discussed with [facility] neurology, who recommended MRI brain, which showed "NO EVIDENCE OF ACUTE INFARCT OR INTRACRANIAL MASS. 2. SMALL CYSTLIKE LESION ASSOCIATED WITH THE CAVUM SEPTUM PELLUCIDUM. COULD REPRESENT A SMALL ARACHNOID CYST." The cyst was felt to be incidental. She was also evaluated by psychiatry. It was decided to stop her valium, and change to hydroxyzine. Her presentation may have been secondary to medication changes. She was started on narcotics for shoulder pain the week prior to admission. She was evaluated by PT, who recommended a WC and commode for home. She was starting to regain feeling in her feet the afternoon of discharge, after her PT eval, and was able to carefully ambulate to the bathroom. Will DC home, and recommend follow up with her PCP and neurology. Procedures Performed: none Results and Findings: Lab Pending Results 10/10/18 18:15: B-Natriuretic Peptide 356 H 10/10/18 18:20: WBC 6.4, RBC 4.07 L, Hgb 12.9, Hct 37.3, MCV 91.6, MCH 31.7 H, MCHC 34.6, RDW 11.9, Plt Count 236, MPV 9.4, Immature Gran % (Auto) 0.60 H, Immature Gran # (Auto) 0.04 H, Neutrophils % 51.1, Lymphocytes % 37.0, Monocytes % 7.8, Eosinophils % 3.0, Basophils % 0.5, Nucleated RBC % 0.0, Neutrophils # 3.3, Lymphocytes # 2.36, Monocytes # 0.5, Eosinophils # 0.2, Absolute Basophils 0.0 10/10/18 18:20: Sodium 140, Plasma Sodium 140, Potassium 3.9, Chloride 104, Carbon Dioxide 25.9, Anion Gap 14.0 H, BUN 9, Creatinine 0.86, Est GFR (Non-Af Amer) 86, BUN/Creatinine Ratio 10.5, Random Glucose 101, Calcium 9.0, Calcium Adj for Albumin 9.1, Total Bilirubin 0.2, AST 46, ALT 77 H, Alkaline Phosphatase 71, Total Protein 6.9, Albumin 3.5, TSH 1.807, Free T4 0.53 L 10/10/18 18:30: Urine Opiates Screen Positive H, Barbiturate Screen Negative, Ur Phencyclidine Scrn Negative, Urine Amphetamine Negative, U Benzodiazepines Scrn Positive H, Urine Cocaine Screen Negative, Urine Marijuana (THC) Negative 10/10/18 18:32: Urine Color Pale yellow, Urine Appearance Clear, Urine pH 7.5, Ur Specific [place] 1.010, Urine Protein Negative, Urine Glucose (UA) Negative, Urine Ketones Negative, Urine Blood Negative, Urine Nitrate Negative, Urine Bilirubin Negative, Urine Urobilinogen Normal, Ur Leukocyte Esterase Negative, Urine RBC None seen, Urine WBC None seen, Ur Epithelial Cells Trace, Urine Bacteria None seen, Urine Culture Comments No culture indicated 10/10/18 22:19: Troponin I Less than 0.017 10/11/18 04:20: Troponin I Less than 0.017 Discharge Location: Home Disposition: Home self-care Condition: Stable Discharge Activity: Activity as tolerated Discharge Diet: General/regular food Referrals: Saran Noble MD [Primary Care Provider] - One Week Problem Oriented Discharge Instructions to Patient/Family: Smoking Cessation, Tips for Success, [id number] Additional Patient Instructions (free text): Appointment for [facility] in Psychiatry on 10-17-18 at 11:00 am. Please schedule with neurology of her choice within 2 weeks. Prescriptions (Any new or edited meds): RX: hydrOXYzine HCL [Atarax] 25 mg PO QID PRN #60 tab PRN Reason: Anxiety Complete Home Medications List: Complete Home Medication List: hydrocodone 5 mg-acetaminophen 325 mg tablet 1 tab PO BID PRN 03/31/18 Escitalopram Oxalate [Lexapro] 20 mg PO DAILY 10/10/18 Hyoscyamine Sulfate 0.125 mg PO Q4H PRN 10/10/18 hydrOXYzine HCL [Atarax] 25 mg PO QID PRN #60 tab 10/11/18
[2018-10-11 18:38] VITALS: BP 114/80
== END 2018-10-11 18:36 | disposition home or self-care (01) ==
LOC: ER 17:19 → MS 17:19
PROVIDERS: ADMIT Family Medicine; ATTEND Family Medicine
CPT/HCPCS: 36415; 70450; 70553; 71020; 71046; 80050; 80053; 80307; 81001; 83519; 83880; 84439; 84484; 85025; 93005; 96361; 96374; 97162; 99284; A9576; G0378